=== PATIENT | female | born 1980 | race Caucasian/White ===

== ENCOUNTER → 2018-10-18 08:17 | Outpatient (CLI) | payer BC, SELFPAY ==
--- NOTE | 2018-10-18 08:19 | MM_ITS ---
MM Dig screening mamm BI w/CAD CAD Screening COMPARISON: None, this is baseline INDICATION: There is a history of breast cancer in a patient maternal grandmother and maternal great-grandmother and maternal aunt and paternal aunt TECHNIQUE: Standard CC and MLO images were obtained. R2 CAD reviewed. FINDINGS: Moderate diffuse heterogenic fibroglandular densities are seen in both breasts and the findings are bilateral and symmetrical. There is no suspicious lesion and no suspicious microcalcifications. IMPRESSION: Moderately dense and heterogenic parenchymal pattern with no suspicious lesion seen BI-RADS Category: 1 Negative RECOMMENDED FOLLOW-UP: 1YR - 1 YEAR FOLLOW-UP in view of the strong family history of breast cancer (A letter has been sent to the patient regarding results of the study.)
== END ==
PROVIDERS: PCP Internal Medicine Adolescent Medicine; Visit Provider Nurse Practitioner Obstetrics & Gynecology
DX: Z80.3 Family history of malignant neoplasm of breast (principal)
CPT/HCPCS: 77067

== ENCOUNTER → 2020-09-09 16:12 | Outpatient (CLI) | payer BC, SELFPAY ==
--- NOTE | 2020-09-09 16:13 | MM_ITS ---
PROCEDURE: MM DIG SCREENING MAMM BI W/CAD Digital Breast Tomosynthesis Included CLINICAL INDICATION: Screenning Mammogram There is a history of breast cancer in the patient's maternal grandmother and maternal great grandmother and maternal and paternal aunts. The patient currently is on control pills. COMPARISON: MG SCBI MM Dig screening mamm BI w/CAD from 10/18/2018 TECHNIQUE: Standard CC and MLO images and 3D Tomosynthesis was obtained. R2 CAD reviewed. FINDINGS: Diffuse fibroglandular densities are seen in the central portions both breast and the findings are fairly symmetrical bilaterally. There is a benign-appearing microcalcification deep right breast. There couple of benign-appearing microcalcifications left breast. There is no suspicious lesion and no suspicious microcalcifications. IMPRESSION: Fibrofatty parenchyma with no suspicious lesions seen BI-RAD Category: 2 Benign Finding(s) FOLLOW-UP: 1YR 1 Year Follow-up (A letter has been sent to the patient regarding results of the study.) Dictated by: Dr. Jonas Solano MD 09/11/2020 10:01 Dr. Jonas Solano MD in [place] 09/11/2020 10:01
== END ==
PROVIDERS: PCP Internal Medicine Adolescent Medicine; Visit Provider Nurse Practitioner Obstetrics & Gynecology
DX: Z12.31 Encounter for screening mammogram for malignant neoplasm of breast (principal)
CPT/HCPCS: 77063; 77067

== ENCOUNTER → 2022-06-15 08:12 | Outpatient (CLI) | payer BC, SELFPAY ==
--- NOTE | 2022-06-15 08:16 | MR_ITS ---
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 The globes are intact without evidence of hemorrhage or mass. The extraocular muscles are intact. The optic nerves have an unremarkable appearance. There is no evidence of intraorbital mass or abnormal fluid collection. No abnormal contrast enhancement is identified. The optic chiasm has an unremarkable appearance. IMPRESSION: No mass or abnormal contrast enhancement Reviewed, Interpreted and Dictated by César Grimm III, MD Transcribed by Francy Mark Authenticated and [facility]
--- NOTE | 2022-06-15 08:16 | MR_ITS ---
FINAL REPORT CLINICAL HISTORY: PAPILLEDEMA RIGHT EYE, NONINTRACTABLE HEADACHE floater in right eye since end april 14 ml prohance given FINDINGS: Multiplanar MR imaging of the brain was performed without and with contrast. There is no evidence of intracranial hemorrhage or mass. No abnormal extra-axial fluid collection is seen. The ventricular size is within normal limits. There is no evidence of shift of the midline structures. The posterior fossa and brainstem have an unremarkable appearance. No area of abnormal restricted diffusion is identified. No abnormal contrast enhancement is seen. Normal major vessel vascular flow voids are noted. There are retention cysts or polyps in both maxillary sinuses. IMPRESSION: No acute intracranial abnormality identified. Reviewed, Interpreted and Dictated by César Grimm III, MD Transcribed by Francy Mark Authenticated and [facility]
== END ==
PROVIDERS: PCP Internal Medicine Adolescent Medicine; Visit Provider Internal Medicine Adolescent Medicine
DX: H57.11 Ocular pain, right eye (principal); R51.9 Headache, unspecified; H05.53 Retained (old) foreign body following penetrating wound of bilateral orbits
CPT/HCPCS: 70543; 70553; A9576

== ENCOUNTER → 2022-12-21 06:46 | Outpatient (CLI) | payer BC, SELFPAY ==
--- NOTE | 2022-12-21 06:48 | CT_ITS ---
FINAL REPORT TECHNIQUE: Thin section axial CT images of the facial bones and sinuses were obtained without contrast. Coronal reformatted images were also obtained.This study was performed with techniques to keep radiation doses as low as reasonably achievable, (ALARA). Individualized dose reduction techniques using automated exposure control or adjustment of mA and/or kV according to the patient''''s size were employed. CLINICAL HISTORY: sinusitis FINDINGS: There is moderate lobular mucosal thickening of the maxillary sinuses. No fluid levels are identified. The ostiomeatal units have an unremarkable appearance. There is narrowing of the right infundibulum. There is right sided nasal septal deviation with a right-sided nasal septal spur. No fracture or acute bony abnormality is identified. IMPRESSION: Maxillary sinusitis. Reviewed, Interpreted and Dictated by César Grimm III, MD Transcribed by Francy Mark Authenticated and . [facility]
== END ==
PROVIDERS: PCP Internal Medicine Adolescent Medicine; Visit Provider Otolaryngology
DX: J32.9 Chronic sinusitis, unspecified (principal)
CPT/HCPCS: 70486

== ENCOUNTER → 2022-12-27 09:32 | Outpatient (CLI) | payer BC, SELFPAY ==
[2022-12-27 10:32] LABS: Basophils # 0.1 K/mm3 (0-0.2); Basophils % 0.9 % (0.1-2.0); Eosinophils # 0.2 K/mm3 (0.0-0.4); Eosinophils % 2.4 % (0.1-12.0); Hematocrit 43.8 % (37.0-47.0); Lymphocytes # 2.7 K/mm3 (0.7-4.5); Lymphocytes % 34.8 % (10-50); Mean Corpuscular HGB Conc 31.9 g/dL (31.8-35.4); Mean Corpuscular Hemoglobin 28.8 pg (27.0-31.2); Mean Corpuscular Volume 90.2 fl (81-99); Mean Platelet Volume 7.8 fl (7.4-10.4); Monocytes # 0.4 K/mm3 (0.1-1.0); Monocytes % 4.7 % (1.7-9.3); Neutrophils # 4.5 K/mm3 (1.8-7.8); Neutrophils % 57.2 % (37.0-80.0); Platelet Count 277 K/mm3 (142-424); Red Blood Count 4.86 M/mm3 (4.20-5.40); Red Cell Distribution Width 13.9 % (11.5-17.5); White Blood Count 7.8 K/mm3 (4.8-10.8)
[2022-12-27 11:07] LABS: Alanine Aminotransferase 18 U/L (12-78); Albumin Level 4.3 g/dl (3.5-5.0); Albumin/Globulin Ratio 1.6 (1.1-1.8); Alkaline Phosphatase 48 U/L (38-126); Anion Gap 8.4 mEq/L (5-15); Aspartate Amino Transferase 29 U/L (14-36); Bilirubin,Total 0.7 mg/dl (0.2-1.3); Blood Urea Nitrogen 12 mg/dl (7-17); Calcium 8.8 mg/dl (8.4-10.2); Carbon Dioxide 23 mmol/L (22.0-30.0); Chloride 108 mmol/L (98-107); Chol/HDL Ratio 2.7 (1-3.5); Cholesterol 155 mg/dl (140-200); Estimated Glomerular Filt Rate 92 ml/min (>60); GFR (African American) 112 ML/MIN (>60); Globulin 2.7 g/dL (1.3-3.2); Glucose 84 mg/dl (74-100); HDL Cholesterol 57 mg/dl (40-60); Potassium 4.4 mmoL/L (3.5-5.1); Sodium 135 mmol/L (136-145); Triglycerides 90 mg/dl (30-150); VLDL Cholesterol 18 mg/dL (0-40)
[2022-12-27 11:18] LABS: Direct LDL Cholesterol 88.74 mg/dL (100-129)
[2022-12-27 11:25] LABS: 25-OH Vitamin D, Total 41.8 ng/mL (30-100)
[2022-12-27 11:57] LABS: Vitamin B12 614 pg/mL (239-931)
[2022-12-27 12:37] LABS: Free T4 (Free Thyroxine) 0.98 ng/dl (0.78-2.19)
== END ==
PROVIDERS: PCP Internal Medicine Adolescent Medicine; Visit Provider Nurse Practitioner Obstetrics & Gynecology
DX: R53.82 Chronic fatigue, unspecified (principal); R53.83 Other fatigue; E66.9 Obesity, unspecified; Z68.33 Body mass index [BMI] 33.0-33.9, adult
CPT/HCPCS: 36415; 80053; 80061; 82306; 82607; 84439; 84443; 85025

== ENCOUNTER → 2023-05-05 15:38 | Outpatient (CLI) | payer BC, SELFPAY ==
[2023-05-05 15:43] LABS: MANUAL DIFFERENTIAL MANUAL DIFFERENTIAL (MANUAL DIFF)
[2023-05-05 16:07] LABS: Basophils # 0.1 K/mm3 (0-0.2); Basophils % 0.6 % (0.1-2.0); Eosinophils # 0.3 K/mm3 (0.0-0.4); Eosinophils % 3.8 % (0.1-12.0); Hematocrit 42.2 % (37.0-47.0); Hemoglobin 13.5 g/dL (12.2-16.2); Lymphocytes # 3.9 K/mm3 (0.7-4.5); Lymphocytes % 48.7 % (10-50); Mean Corpuscular HGB Conc 32.1 g/dL (31.8-35.4); Mean Corpuscular Hemoglobin 27.9 pg (27.0-31.2); Mean Corpuscular Volume 87.1 fl (81-99); Mean Platelet Volume 8.2 fl (7.4-10.4); Monocytes # 0.4 K/mm3 (0.1-1.0); Monocytes % 4.9 % (1.7-9.3); Neutrophils # 3.3 K/mm3 (1.8-7.8); Neutrophils % 41.9 % (37.0-80.0); Platelet Count 263 K/mm3 (142-424); Red Blood Count 4.84 M/mm3 (4.20-5.40); Red Cell Distribution Width 13.9 % (11.5-17.5); White Blood Count 7.9 K/mm3 (4.8-10.8)
[2023-05-05 16:10] LABS: Urine Pregnancy, HCG Qual. Negative (Negative)
[2023-05-05 16:31] LABS: Anion Gap 11.2 mEq/L (5-15); Blood Urea Nitrogen 17 mg/dl (7-17); Calcium 8.8 mg/dl (8.4-10.2); Carbon Dioxide 24 mmol/L (22.0-30.0); Chloride 108 mmol/L (98-107); Estimated Glomerular Filt Rate 79 ml/min (>60); GFR (African American) 95 ML/MIN (>60); Glucose 93 mg/dl (74-100); Potassium 4.2 mmoL/L (3.5-5.1); Sodium 139 mmol/L (136-145)
[2023-05-05 18:34] LABS: Lymphocytes % 44 % (10-50); Monocytes % 2 % (2-9); Neutrophils % 53 % (42-76); Platelet Estimate Normal; RBC Morphology Normal; Total Cells Counted 100
== END ==
PROVIDERS: PCP Internal Medicine Adolescent Medicine; Visit Provider Nurse Practitioner
DX: Z01.812 Encounter for preprocedural laboratory examination (principal); J32.0 Chronic maxillary sinusitis; J34.2 Deviated nasal septum
CPT/HCPCS: 36415; 80048; 81025; 85007; 85014; 85018; 85048; 85049

== ENCOUNTER 2023-05-10 08:38 | Day surgery (SDC) | payer BC, SELFPAY ==
[2023-05-08 13:18] VITALS: BMI 31.7
[2023-05-10] VITALS (10 sets, daily range): BP systolic 136–161; BP diastolic 66–94; PULSE 51–75; RESP 16–18; TEMP 36.1; O2SAT 94–100
--- NOTE | 2023-05-10 09:32 | ECG_ITS ---
APPROVED REPORT Exam: Resting ECG HR:62 bpm ECG Measurements Heart Rate 62 AXES NC 149 P 70 QRSd 103 QRS 28 QT 411 T 10 QTc 415 Conclusion SINUS RHYTHM WITH SINUS ARRHYTHMIA NORMAL ECG UNCONFIRMED REPORT Electronically signed by : Dario Omalley MD 05/11/2023 21:37:36
--- NOTE | 2023-05-10 11:18 | P.PN_ITS ---
[facility] Disclaimer: The information contained in this section may have been updated after the patient was seen, as this information can be updated by other users. Medical History Chronic sinusitis Deviated septum IgG deficiency Maxillary sinusitis, chronic Surgical History History of thumb surgery History of wisdom tooth extraction, class I edentulism Family History Grandmother Cancer breast cancer Family/Other Cancer paternal aunt-breast cancer Other Hypertension Social History Smoking Status: Never smoker alcohol intake: current substance use type: denies use current occupational status: employed Travel in the last 8 weeks: None adopted: No [facility] Anesthesia Checklist Patient Identification Patient Identification: Arm Band Structural Data Admitted From: Home Planned Operative Procedure/s: Nasal Septoplasty with FESS Consent for Planned Operative Procedure(s) Verified: Yes Verified Documents: Surgical Consent and History and Physical NPO Status Verified Time NPO: 00:00 Additional verifications Anesthesia Reactions: No Hx Blood Transfusions: No Blood Transfusion Reaction: No Airway Assessment C-Spine Mobility Assessed: Yes TMJ Mobility Assessed: Yes Dentition: Good Dentition Neurological Assessment Level of Consciousness: Awake and Alert Anesthesia Plan Anesthesia Risk discussed: Yes Anesthesia Plan: Verified ASA Class: I Anesthesia Type: General
--- NOTE | 2023-05-10 11:45 | P.OP_ITS ---
Date of procedure: 05/10/23 Pre-op Diagnosis:: Chronic sinusitis, deviated septum, turban hypertrophy left Post-op Diagnosis:: Chronic sinusitis, deviated septum, turbinate hypertrophy left Procedure performed:: Septoplasty, functional endoscopic sinus surgery with nasal endoscopy and bilateral partial ethmoidectomy, nasal endoscopy and bilateral maxillary antrostomies and removal of antral mucosa disease, submucous resection left inferior turbinate Surgeon:: Enzo Law MD APPRENTICE PLUMBER:: Luis A Ruiz Anesthesia: GETMelvi Estimated blood loss (mL): 50 Operative findings:: Severely deviated septum right, turban hypertrophy on the left, chronic ethmoid and maxillary sinusitis Operative note:: The patient was brought to the operating room and after adequate general anesthesia the nose was prepped and draped in the usual sterile fashion and 1% lidocaine with epinephrine used to locally infiltrate the septum, middle meatuses, and left inferior turbinate. A right hemitransfixion incision was made and mucoperichondrial flaps elevated off the bony and cartilaginous septum and then a large bony spur posteriorly from the vomer was resected along with the deviated portion of the perpendicular plate of the ethmoid. The cartilaginous septum was then mobilized and brought back over the midline maxillary crest and then the mucosal flaps returned to anatomic position and held in place with a 4-0 plain gut horizontal mattress suture and hemitransfixion incision closed with 4-0 chromic. Attention was then drawn to the left middle meatus. Using a 0 degree sinus endoscope the middle meatus is visualized in the middle turbinate reduced with a microdebrider to create more space in the middle meatus. The uncinate process was then resected with a microdebrider and the natural ostium the maxillary sinus was enlarged and cleared of of obstructing mucosal disease. Anterior ethmoidectomy was then performed clearing disease polypoid mucosa in the anterior ethmoid working through the bulla ethmoidalis while sparing normal mucosa in the posterior ethmoid nova pack was placed in the left middle meatus and attention drawn to the right side. In similar fashion uncinectomy was performed and the natural ostium the maxillary sinus was cleared of inflammatory mucosal disease and then an anterior ethmoidectomy again performed sparing normal mucosa posteriorly. Nova pack was placed in the left middle meatus and attention drawn to the left inferior turbinate. Submucosal resection of the of the redundant soft tissue of the inferior turbinates was performed with a microdebrider and turbinate blade through an anterior stab incision. Ceron splints were then placed on the septum and secured using 3-0 nylon and the procedure concluded. All counts correct and blood loss was less than 50 mL and patient was sent to recovery in stable condition. Condition: stable Disposition: PACU Complications:: None
--- NOTE | 2023-05-10 11:51 | P.PNANES_ITS ---
[facility] Anesthesia Record Part I Anesthesia Record I Intake, IV Amount: 1,000 Estimated blood loss (mL): 5 Urine output (mL): 0 Blood Products used (#): none Blood Pressure: 159/93 SaO2: 94 Pulse Rate: 75 Respiratory Rate: 16 Temperature: 97 F Patient is:: Drowsy and Stable Stable to PACU at:: 11:50
--- NOTE | 2023-05-11 07:17 | P.PNANES_ITS ---
[facility] Anesthesia Record Part II Anesthesia Record Part II Discharge Time: 12:20 Destination: Surgical Day Care (OP Surgery) PACU nurse assessment reviewed?: Yes Patient Condition:: Good Anesthesia Complications:: None Swallowing reflex intact?: Yes Cyanosis?: No Blood Pressure: 143/84 Pulse Rate: 65 Temperature: 97 F Mental Status: Alert & Oriented Pain level:: 0 Nausea and/or vomitting:: None Intake, IV Amount: 0
[2023-05-11 07:18] VITALS: BP 143/84; PULSE 65; TEMP 36.1
== END 2023-05-10 13:10 | disposition home or self-care (01) ==
PROVIDERS: PCP Internal Medicine Adolescent Medicine; Visit Provider Otolaryngology
PROC: (CPT 30520; principal; 2023-05-10 11:45)
DX: J32.9 Chronic sinusitis, unspecified (principal); J34.2 Deviated nasal septum; J34.3 Hypertrophy of nasal turbinates
CPT/HCPCS: 30520; 30140; 31254; 31267; 93005; 96374; J2405

== ENCOUNTER 2023-11-03 14:15 | Outpatient (CLI) | payer BC, SELFPAY ==
--- NOTE | 2023-11-03 14:17 | MM_ITS ---
PROCEDURE INFORMATION: Exam: MG Bilateral Screening 3D Mammography Exam date and time: 11/03/2023 2:13 PM Age: 43 years old Clinical indication: Screening examination TECHNIQUE: Imaging protocol: Bilateral Screening tomosynthesis and 2D mammography including computer-aided detection (CAD) when performed. COMPARISON: 1. MG MM DIG SCREENING MAMM BI W/CAD 09/09/2020 4:20 PM 2. MG SCBI MM Dig screening mamm BI w/CAD 10/18/2018 8:42 AM FINDINGS: MAMMOGRAPHY: Breast composition: There are scattered areas of fibroglandular density. Mass: None. Architectural distortion: None. Calcifications: No suspicious calcifications. Asymmetric density: None. Skin thickening: None. Axillary adenopathy: None. IMPRESSION: No mammographic evidence of malignancy. Annual screening is recommended unless otherwise clinically indicated. ASSESSMENT: BI-RADS Category 1: Negative
== END 2023-11-03 23:59 ==
LOC: RAD 14:17
PROVIDERS: PCP Internal Medicine Adolescent Medicine; Visit Provider Nurse Practitioner Obstetrics & Gynecology
DX: Z12.31 Encounter for screening mammogram for malignant neoplasm of breast (principal)
CPT/HCPCS: 77063; 77067

== ENCOUNTER 2025-10-02 09:02 | Outpatient (CLI) | payer BC, SELFPAY ==
--- OUTSIDE RECORDS SUMMARY | 2025-10-02 09:16 | XMS_ITS | Clinical Summary ---
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 (SNOMED CT) 05/01 Active 05/01 Tyree Miller MD Immunoglobulin G subclass deficiency Other obesity due to excess calories 031334887 (SNOMED CT) 07/11 Active 07/11 Rani Escobar RN Simple obesity Acute bronchitis, unspecified J20.9 (ICD-10-CM ) 06/24 Active 06/24 Alma Rosa Wilbur Acute bronchitis, unspecified Acute upper respiratory infection (URI), unspecified 99363116 (SNOMED CT) 06/24 Active 06/24 Alma Rosa Bowles Upper respiratory infection Benign Essential Hypertension 95643753 (SNOMED CT) 06/24 Active 06/24 Alma Rosatammy Bowles Benign hypertension Medications Medication Instructions Start Date Stop Date Generic Name [facility] Provider DILTIAZEM HCL ER COATED [place]ADS 180 MG [id number]-AXH take 1 capsule by mouth once daily 05/03 DILTIAZEM HCL COATED [place]ADS 93667845808 Jewel K TRIAMCINOLONE ACETONIDE CREAM PRN 11/06 TRIAMCINOLONE ACETONIDE CREA 79499311628 Jewel K TRIAMCINOLONE ACETONIDE CREAM PRN 11/06 TRIAMCINOLONE ACETONIDE CREA 46237910651 Tyree Miller MD TRI-SPRINTEC 0.18/0.215/0.25 MG-35 MCG TABS 11/18 NORGESTIM-ETH ESTRAD TRIPHASIC 22382805748 Tyree Miller MD SINGULAIR 10 MG TABS by mouth daily 05/01 MONTELUKAST SODIUM 48239265552 Jewel K MULTIVITAMIN GUMMIES WOMENS CHEW Take one chewable gummie by mouth per day 06/27 MULTIPLE VITAMINS-MINERALS 68087696182 Jewel K TRIAMCINOLONE ACETONIDE CREAM apply as directed by prescribing physician 06/27 TRIAMCINOLONE ACETONIDE CREA 07084504486 Jewel Mar LEVOFLOXACIN 750 MG TABS 06/13 LEVOFLOXACIN 54833545339 Rani Escobar RN PROMETHAZINE-DM 6.25-15 MG/5ML SYRP take 5 milliliters by mouth every 4 to 6 hours if needed 05/09 PROMETHAZINE-DM 83968086053 Rani Escobar RN CLINDAMYCIN PHOSPHATE 1 % SOLN APPLY 1 APPLICATORFUL TO THE AFFECTED AREA ONCE DAILY FOR 1 MONTH 06/02 CLINDAMYCIN PHOSPHATE 82339161874 Rani Escobar RN METHYLPREDNISOLONE 4 MG TBPK take as directed 05/23 METHYLPREDNISOLONE 22589985202 Rani Escobar RN DOXYCYCLINE HYCLATE 100 MG CAPS take 1 capsule by mouth twice a day 05/23 DOXYCYCLINE HYCLATE 15706825802 Rani Escobar RN CEFDINIR 300 MG CAPS take 1 capsule by mouth twice a day for 10 days 05/09 CEFDINIR 29971988793 Rani Escobar RN ALL DAY ALLERGY 10 MG ORAL CAPSULE Take one tablet by mouth daily 06/27 CETIRIZINE HCL 37216588297 Omayra S TRIAMCINOLONE ACETONIDE CREAM apply as directed by prescribing physician 06/27 TRIAMCINOLONE ACETONIDE CREA 43171973938 Omayra S MULTIVITAMIN GUMMIES WOMENS CHEW Take one chewable gummie by mouth per day 06/27/03 MULTIPLE VITAMINS-MINERALS 79633718472 Omayra Ortiz CARTIA XT 180 MG [id number] 1 po qd 03/12 DILTIAZEM HCL COATED BEADS 36345648310 Omayra Ortiz CARTIA XT 180 MG [id number] 1 po qd 03/12 DILTIAZEM HCL COATED BEADS 71462440336 Yaa Ellis FLUTICASONE PROPIONATE 50 MCG/ACT SUSP INSTILL 1 TO 2 SPRAYS PER NOSTRIL ONCE A DAY 05/03 FLUTICASONE PROPIONATE 90756899621 Yaa Ellis TRI-SPRINTEC 0.18/0.215/0.25 MG-35 MCG TABS 11/18 NORGESTIM-ETH ESTRAD TRIPHASIC 35942360444 Yaa Ellis PROMETHAZINE-DM 6.25-15 MG/5ML SYRP take 5 milliliters by mouth every 4 to 6 hours if needed 05/09 PROMETHAZINE-DM 23836823697 Yaa Ellis CEFDINIR 300 MG CAPS take 1 capsule by mouth twice a day for 10 days 05/09 CEFDINIR 88999249444 Yaa Ellis METHYLPREDNISOLONE 4 MG TBPK take as directed 05/23 METHYLPREDNISOLONE 08515851126 Yaa Ellis DOXYCYCLINE HYCLATE 100 MG CAPS take 1 capsule by mouth twice a day 05/23 DOXYCYCLINE HYCLATE 85610865248 Yaa Ellis CLINDAMYCIN PHOSPHATE 1 % SOLN APPLY 1 APPLICATORFUL TO THE AFFECTED AREA ONCE DAILY FOR 1 MONTH 06/02 CLINDAMYCIN PHOSPHATE 52926421644 Yaa Ellis TRI-LINYAH 0.18/0.215/0.25 MG-35 MCG TABS 1 po qd 11/18 NORGESTIM-ETH ESTRAD TRIPHASIC 10389960991 Yaa Ellis DILTIAZEM HCL ER COATED BEADS 180 MG [id number] take 1 capsule by mouth once daily 05/03 DILTIAZEM HCL COATED BEADS 71742933727 Yaa Ellis LEVOFLOXACIN 750 MG TABS 06/13 LEVOFLOXACIN 68664176413 Yaa Ellis Medications Administered No information available. Allergies, Adverse Reactions, Alerts Allergy Name Reaction Description Start Date Severity Statu s Provider GRASS Mild Active Omayra S TREES Mild Active Omayra S MOLD Moderate Active Omayra S Results Date Name Value Unit Range Flag Description Lab Report: C-REACTIVE PROTE IN CRPCARDRISK 5.40 MG/DL 0.00-10.0 0 C reactive protein [Mass/volume] in Serum or Plasma Lab Report: CBC WITH AUTO DI FFERENTIAL LYMPHS % 50.2 % 24.0-44.0 H Lymphocyte s/100 leukocytes in Blood by Automated count External Other: Patient kavita al update - Email Push, [facility] ... PAT E-MAIL [email or web address]. patient's e-mail address External Other: Patient port al update - EmailStatus, [facility] ... PATPORTALPIN Linked This elizabeth l be used to establish a PIN number for patients to register in the Patient Portal. Lab Report: CBC WITH AUTO DI FFERENTIAL MONOCYTE BF 6.1 % 0.0-12.0 monocyte s as percent of body fluid leukocytes PMN % 52.2 % 41.0-71.0 Neutrophils /100 leukocytes in Blood by Automated count RDW_ 13.9 11.3-14.5 RDW, no uni ts Lab Report: COMPREHENSIVE ME TABOLIC PANEL ANIONGAP 13.5 mmol/L 5.0-15.0 anion gap, serum BUN/CREAT 15.9 7.0-25.0 Urea nitrogen/Creatinine [Mass Ratio] in Serum or Plasma [id number] 1.2 g/dL GE use only - for LinkLogic import when terms are not otherwise specified GFRC 78 mL/min/1. 73m2 >60 Glomerular Filtration Rate Calculation BILI TOTAL 0.5 mg/dL 0.2-1.2 Bilirubin. total [Mass/volume] in Serum or Plasma ALK PHOS 48 U/L 39-117 Alkaline eulogio sphatase [Enzymatic activity/volume] in Blood SGOT (AST) 20 U/L 1-32 Aspartate aminotransferase [Enzymatic activity/volume] in Serum or Plasma SGPT (ALT) 22 U/L 1-33 Alanine aminotransferase [Enzymatic activity/volume] in Serum or Plasma ALBUMIN 4.40 g/dL 3.50-5.20 Albumin [Mass/volume] in Serum or Plasma PROTEIN, TOT 8.0 g/dL 6.0-8.5 Protein [Mass/volume] in Serum or Plasma CALCIUM 9.3 mg/dL 8.6-10.5 Calcium [Moles/volume] in Serum or Plasma CO2 23.5 mmol/L 22.0-29.0 Carbon diox kamla, total [Moles/volume] in Venous blood CHLORIDE 101 mmol/L 98-107 Chloride [Moles/volume] in Serum or Plasma POTASSIUM 4.3 mmol/L 3.5-5.2 Potassium [Moles/volume] in Serum or Plasma SODIUM 138 mmol/L 136-145 Sodium [Moles/volume] in Serum or Plasma CREATININE 0.82 mg/dL 0.57-1.00 Creatini ne [Mass/volume] in Serum or Plasma BUN 13 mg/dL 6-20 Urea nitrogen [Mass/volume] in Serum or Plasma GLUCOSE SER 75 mg/dL 65-99 Glucose [Mass/volume] in Serum or Plasma Lab Report: CBC WITH AUTO DI FFERENTIAL IMMATUREGRAN 0.05 10*3/MM3 0.00-0.05 Immature granulocytes [#/volume] in Blood BASO# 0.08 10*3/mm3 0.00-0.20 Basophils [#/vol ume] in Blood EOS ABSLT 0.21 10*3/uL 0.00-0.40 Eosinophi ls [#/volume] in Blood MONOSCT AUTO 0.52 10*3/uL 0.10-0.90 Monocy micah [#/volume] in Blood by Automated count LYMPHCT AUTO 2.90 10*3/mm3 0.70-3.10 Lymph ocytes [#/volume] in Blood by Automated count ABS NEUTROPH 3.71 10*3/uL 1.70-7.00 Neutro phils [#/volume] in Blood IMM GRANU % 0.7 % 0.0-0.5 H Immature granulocytes/100 leukocytes in Blood % EOS AUTO 2.8 % 0.3-6.2 Eosinophil s/100 leukocytes in Blood by Automated count MONOCYTE % 7.0 % 5.0-12.0 Monocytes /100 leukocytes in Blood by Automated count LYMPHOCY BF 38.8 % 19.6-45.3 lymphoc ytes as percent of body fluid leukocytes NEUTROP BF 49.6 % 42.7-76.0 Neutroph ils/100 leukocytes in Body fluid PLATELETS 317 10*3/mm3 140-450 Platelets [#/volume] in Blood by Automated count RDW 13.4 % 12.3-15.4 Erythrocyte distribution width [Ratio] by Automated count MCHC 32.9 G/DL 31.5-35.7 MCHC [Mass/ volume] by Automated count MCH 28.4 pg 26.6-33.0 MCH [Entiti c mass] by Automated count MCV 86.4 fL 79.0-97.0 MCV [Entiti c volume] by Automated count HCT 46.5 % 34.0-46.6 Hematocrit [Volume Fraction] of Blood by Automated count HGB 15.3 g/dL 12.0-15.9 Hemoglobin [Mass/volume] in Blood RBC 5.38 10*6/mm3 3.77-5.28 H Erythrocyt es [#/volume] in Blood by Automated count WBC 7.47 10*3/mm3 3.40-10.8 0 Leukocytes [#/volume] in Blood by Automated count Office Visit: 6 MEDS REVIEW Done Documenta tion of current medications (procedure) 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 Dietary management education, guidance, and counseling (procedure) ORALTOBACUSE Never Tobacco smoking status SMOK STATUS Never smoker Tobacco smoking status Plan of Care Type Date Detail Referral CT Sinuses w/o c ontrast Pending order CBC with Differe ntial Pending order Immunoglobulins Quant (IGG,IGA,IGE,IGM) Pending order IGG Subclasses ( 1-4) Pending order CBC with Differe ntial Pending order IGG Subclasses ( 1-4) Pending order Immunoglobulins Quant (IGG,IGA,IGE,IGM) Pending order IGG Subclasses ( 1-4) Pending order Continue oral an tibiotics Pending order CMP Pending order CBC with Differe ntial Pending order C- reactive prot ein Pending order Immunoglobulins Quant (IGG,IGA,IGE,IGM) Pending order IGG Subclasses ( 1-4) Pending order Other Pending order X-Ray, Chest, PA & Lateral Patient education WEIGHT%20MANAG EMENT Procedures Code Procedure Name Date Entry Date [id number] CBC with Differential 2017 CPT-06724 Immunoglobulins Quant (IGG,IGA,IGE,IGM) 2 CPT-51172 IGG Subclasses (1-4) [id number] CBC with Differential 2016 CPT-74750 IGG Subclasses (1-4) CPT-50662 Immunoglobulins Quant (IGG,IGA,IGE,IGM) 2 CPT-02178 IGG Subclasses (1-4) CPT-Cooral Continue oral antibiotics 20 14/06/29 CPT-25079 CMP [id number] CBC with Differential 2015 CPT-21957 C- reactive protein CPT-13934 Immunoglobulins Quant (IGG,IGA,IGE,IGM) 2 CPT-57948 IGG Subclasses (1-4) CPT-LAB Other CPT-43787 CT Sinuses w/o contrast 2015 CPT-55446 X-Ray, Chest, PA & Lateral 2 Vital Signs Date Name Value Unit Description BMI (Body Mass Index) 27.46 kg/m2 Bod y Mass Index (Ratio) Body Temperature 98.0 [degF] temperat ure E&M BP Diastolic 72 mm[Hg] blood pressu re, diastolic BP Systolic 134 mm[Hg] blood pressur e, systolic Heart Rate 76 /min pulse rate Respiratory Rate 14 /min respirat ory rate E&M Weight Measured 160 [lb_av] weight E& M Weight Measured 160 [lb_av] weight E& M Height 64 [in_us] height E&M Immunizations Vaccine Administration Date Standard Description CVX Co de Dose Unspecified Formulation Unspecified Formulation 88 Unknown Unspecified Formulation Unspecified Formulation 152 Unknown Advance Directives Directive Description Start Date DISCUSSED - NO DECISION MADE
[2025-10-02 09:55] LABS: Hematocrit 42.1 % (37.0-47.0); Hemoglobin 13.9 g/dL (12.2-16.2); Immature Granulocytes % 0.4 %; Mean Corpuscular HGB Conc 33.0 g/dL (31.8-35.4); Mean Corpuscular Hemoglobin 28.7 pg (27.0-31.2); Mean Corpuscular Volume 87.0 fl (81-99); Nucleated Red Blood Cells % 0 %; Platelet Count 287 K/mm3 (142-424); Red Blood Count 4.84 M/mm3 (4.20-5.40); Red Cell Distribution Width-SD 42.5 fL; White Blood Count 8.1 K/mm3 (4.8-10.8)
[2025-10-02 10:22] LABS: Albumin Level 4.5 g/dl (3.5-5.0); Chloride 104 mmol/L (98-107); Sodium 140 mmol/L (136-145)
[2025-10-02 10:23] LABS: Potassium 4.7 mmoL/L (3.5-5.1)
[2025-10-02 10:25] LABS: Alanine Aminotransferase 23 U/L (12-78); Albumin/Globulin Ratio 1.6 (1.1-1.8); Alkaline Phosphatase 62 U/L (38-126); Anion Gap 18.7 mEq/L (5-15); Aspartate Amino Transferase 27 U/L (14-36); Bilirubin,Total 0.7 mg/dl (0.2-1.3); Blood Urea Nitrogen 12 mg/dl (7-17); Calcium 9.1 mg/dl (8.4-10.2); Carbon Dioxide 22 mmol/L (22.0-30.0); Cholesterol 144 mg/dl (140-200); Creatinine,Serum 0.70 mg/dl (0.52-1.04); Estimated Glomerular Filt Rate 91 ml/min (>60); GFR (African American) 110 ML/MIN (>60); Globulin 2.8 g/dL (1.3-3.2); Glucose 86 mg/dl (74-100); Total Protein,Serum 7.3 g/dl (6.3-8.2); Triglycerides 97 mg/dl (30-150)
[2025-10-02 10:26] LABS: HDL Cholesterol 51 mg/dl (40-60); Magnesium 2.1 mg/dl (1.6-2.3)
[2025-10-02 10:43] LABS: Hemoglobin A1C 4.9 % (4.0-6.0)
[2025-10-02 10:44] LABS: 25-OH Vitamin D, Total 38.7 ng/mL (30-100)
[2025-10-02 10:57] LABS: Thyroid Stimulating Hormone 1.12 uIU/mL (0.465-4.68)
[2025-10-02 11:59] LABS: Vitamin B12 517 pg/mL (239-931)
== END 2025-10-02 23:59 | disposition home or self-care (01) ==
LOC: LAB 09:05
PROVIDERS: PCP Internal Medicine Adolescent Medicine
DX: Z00.00 Encounter for general adult medical examination without abnormal findings (principal); I10 Essential (primary) hypertension; G47.9 Sleep disorder, unspecified; Z68.31 Body mass index [BMI] 31.0-31.9, adult
CPT/HCPCS: 36415; 80053; 80061; 82306; 82607; 83036; 83735; 84443; 85025

== ENCOUNTER 2025-10-13 15:33 | Outpatient (CLI) | payer BC, SELFPAY ==
--- NOTE | 2025-10-13 15:36 | MM_ITS ---
PROCEDURE INFORMATION: Exam: MG Bilateral Screening 3D Mammography Exam date and time: 10/13/2025 3:46 PM Age: 45 years old Clinical indication: Screening examination TECHNIQUE: Imaging protocol: Bilateral Screening tomosynthesis and 2D mammography including computer-aided detection (CAD) when performed. COMPARISON: MG MM DIG SCREENING MAMM BI W/CAD 11/03/2023 2:13 PM FINDINGS: MAMMOGRAPHY: Breast composition: There are scattered areas of fibroglandular density. Mass: None. Architectural distortion: None. Calcifications: No suspicious calcifications. Asymmetric density: None. Skin thickening: None. Axillary adenopathy: None. IMPRESSION: No mammographic evidence of malignancy. Annual screening is recommended unless otherwise clinically indicated. ASSESSMENT: BI-RADS Category 1: Negative.
== END 2025-10-13 23:59 | disposition home or self-care (01) ==
LOC: RAD 15:34
PROVIDERS: PCP Internal Medicine Adolescent Medicine
DX: Z12.31 Encounter for screening mammogram for malignant neoplasm of breast (principal); R92.323 Mammographic fibroglandular density, bilateral breasts
CPT/HCPCS: 77063; 77067